=== PATIENT | female | born 1970 | race African-American/Black ===

== ENCOUNTER 2017-07-11 17:04 | Emergency (ER) | payer OTHER, MEDICAID ==
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
[2017-07-11 19:06] VITALS: BP 107/71
== END 2017-07-11 19:05 | disposition home or self-care (01) ==
DX: S16.1XXA Strain of muscle, fascia and tendon at neck level, initial encounter (principal); S46.819A Strain of other muscles, fascia and tendons at shoulder and upper arm level, unspecified arm, initial encounter; V48.5XXA Car driver injured in noncollision transport accident in traffic accident, initial encounter; Y92.410 Unspecified street and highway as the place of occurrence of the external cause; Y99.8 Other external cause status; Y93.89 Activity, other specified